=== PATIENT | male | born 1980 | race Hispanic/Latino ===

== ENCOUNTER 2019-08-22 08:10 | Outpatient (CLI) | payer OTHER ==
[2019-08-22 14:25] LABS: #Eosinphils 0.1 thou/uL (0.0-0.7); #Lymphocytes 2.5 thou/uL (1.20-3.40); #Monocytes 0.4 thou/uL (0.11-0.59); #Neutrophils 3.1 thou/uL (1.40-6.50); %Basophils 0.6 % (0.0-1.0); %Eosinophils 1.8 % (0.0-10.0); %Lymphocytes 40.1 % (21.0-51.0); %Monocytes 6.8 % (0.0-10.0); %Neutrophils 50.8 % (42.0-75.0); Hemoglobin 15.4 g/dL (14.0-18.0); Mean Corpuscular HGB CONC 33.9 g/dL (32.0-36.0); Mean Corpuscular Hemoglobin 29.4 pg (27.0-31.0); Mean Corpuscular Volume 86.8 fL (78.0-98.0); Mean Platelet Volume 8.2 fL (7.4-10.4); Platelet Count 202 thou/uL (130-400); RBC Distribution Width 11.7 % (11.5-14.5); Red Blood Cell (RBC) Count 5.23 mill/uL (4.70-6.10); White Blood Cell (WBC) Count 6.2 thou/uL (4.8-10.8)
[2019-08-22 14:43] LABS: Anion Gap 11 mmol/L (10-20); BUN (Urea Nitrogen) 14 mg/dL (8.9-20.6); Calc. Creatinine Clearance 0 mL/min (70-130); Calcium 9.2 mg/dL (7.8-10.44); Carbon Dioxide 25 mmol/L (22-29); Chloride 105 mmol/L (98-107); Estimated GFR-MDRD Greater than 90; Glucose 91 mg/dL (70-105); Sodium 137 mmol/L (136-145)
[2019-08-23 12:45] LABS: SARS-CoV-2 MS2 Positive; SARS-CoV-2 N Gene Negative; SARS-CoV-2 S Gene Negative; SARS-CoV-2 orf1ab Negative
== END 2019-08-22 08:11 | disposition home or self-care (01) ==
LOC: LABBT 08:10
PROVIDERS: ATTEND Surgery
DX: Z01.812 Encounter for preprocedural laboratory examination (principal); Z11.59 Encounter for screening for other viral diseases; K60.3 Anal fistula
CPT/HCPCS: 80048; 85025; 87635; U0003

== ENCOUNTER 2019-08-25 07:51 | Day surgery (SDC) | payer OTHER ==
[2019-08-21 11:33] VITALS: BMI 31.1
[2019-08-25] MEDS ORDERED: Acetaminophen 500 MG TAB ONE (08:19)
[2019-08-25] MEDS ORDERED: Ketorolac Tromethamine 30 MG/ML VIAL ONE (08:19)
[2019-08-25] MEDS ORDERED: Lidocaine 1% w/Epinephrine 1:100K 20 ML VIAL ONE (08:39)
[2019-08-25] MEDS ORDERED: Bupivacaine 0.25% HCL 30 ML VIAL ONE (08:39)
[2019-08-25] MEDS ORDERED: Fentanyl 250 MCG/5 ML VIAL ONE (09:05)
[2019-08-25] MEDS ORDERED: Lidocaine 2% Jelly 5 ML TUBE ONE (10:04)
[2019-08-25] MEDS ORDERED: PROPOFOL 200 MG/20 ML VIAL ONE (10:30)
[2019-08-25] MEDS ORDERED: Ondansetron PF 4 MG/2 ML Vial ONE (10:30)
[2019-08-25] MEDS ORDERED: Rocuronium Bromide 10 MG/ML (10ML VIAL) ONE (10:30)
[2019-08-25] MEDS ORDERED: Lidocaine 1% PF 5 ML VIAL ONE (10:30)
[2019-08-25] MEDS ORDERED: Succinylcholine Chloride 20 MG/ML 10 ml SYRINGE FS ONE (10:30)
[2019-08-25] MEDS ORDERED: Dexamethasone 20 MG/5 ML VIAL ONE (10:30)
[2019-08-25] MEDS ORDERED: HYDROcodone/Acetaminophen 5/325 mg Tablet ONE (12:12)
--- NOTE | 2019-09-01 13:19 | PDOC.OP ---
Operative Note - Operative Note Operative Note: PROCEDURE: Examination under anesthesia, partial fistulotomy and seton placement SURGEON: Uriel Mercado M.D. 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 Operative management was recommended. FINDINGS: Long anal fistula traversing the external sphincter muscle. PROCEDURE IN DETAIL: After informed consent was obtained and appropriate preoperative antibiotics administered the patient was taken to the operating room he was placed in the supine position and general anesthesia was administered. He was then placed in lithotomy and prepped and draped in standard sterile fashion. Local anesthesia was infused for postoperative pain control and examination under anesthesia performed. The external fistulous opening in the right lateral location was injected with hydrogen peroxide and bubbling from the dentate line seen at the same radian. A lacrimal probe was then placed through the anal fistula. The external portion was opened until the external sphincter muscle was encountered. A 0 silk suture was tied to the end of the lacrimal probe which was then brought through the fistulous tract and secured. The fistulous tract was cleaned out using a curette and the external wound dressed with antibiotic ointment and gauze. The patient was extubated and taken to recovery in good condition. There were no specimens. There were no complications. Estimated blood loss was minimal.
== END 2019-08-25 12:53 | disposition home or self-care (01) ==
LOC: SDC 07:51
PROVIDERS: ATTEND Surgery
PROC: 0DBQ3ZZ Excision of Anus, Percutaneous Approach (ICD-10-PCS; principal; 2019-08-25)
DX: K60.3 Anal fistula (principal); I10 Essential (primary) hypertension; F17.210 Nicotine dependence, cigarettes, uncomplicated; F41.9 Anxiety disorder, unspecified; Z79.2 Long term (current) use of antibiotics
CPT/HCPCS: J0694; J1100; J1885; J2001; J2405; J2704; J3010; S0020